=== PATIENT | female | born 1985 | race Caucasian/White ===

== ENCOUNTER 2022-01-24 10:00 | Outpatient (RCR) | payer OTHER, SELFPAY | END 2022-05-05 15:26 | disposition home or self-care (01) | PROVIDERS: PCP Family Medicine; Visit Provider Family Medicine | DX: N39.3 Stress incontinence (female) (male) (principal); Z51.89 Encounter for other specified aftercare | CPT/HCPCS: 97110; 97112; 97140; 97161 ==

== ENCOUNTER 2022-12-23 00:28 | Emergency (ER) | payer OTHER, SELFPAY ==
[2022-12-23 00:34] VITALS: BP 125/84; PULSE 73; RESP 18; TEMP 36.8; O2SAT 99; BMI 24.0
[2022-12-23 01:00] VITALS: O2SAT 98
--- NOTE | 2022-12-23 01:20 | ED_ITS ---
HPI - General Adult General Chief complaint: Sore Throat Stated complaint: sore throat Time Seen by Provider: 12/23/22 01:03 Source: patient Mode of arrival: ambulatory Limitations: no limitations History of Present Illness HPI narrative: 37-year-old female presents the emergency department with 1+ week history of URI and 4 day history of sore throat. [facility] care provider 3 days ago, negative strep test obtained. Was given oral antibiotics at the pharmacy to have if her symptoms worsen. She spiked a fever about 36 hours later and picked up her antibiotics yesterday morning. She has been taking amoxicillin 1000 mg once daily yesterday and earlier today. These are not helping and she feels like the sore throat is worsening. She says that it feels like it is difficult to swallow even though she can swallow. There was noted breathing difficulty. She tried taking ibuprofen prior to coming to the emergency department with no significant improvement in symptoms. No ear pain, no nasal congestion. No abdominal pain, nausea or vomiting. Fever to 102 yesterday. Has not tried any other interventions to help with symptoms. Past medical history she reports is benign, no major long-term health problems. No long-term prescription medications. Did recently travel outside the area. ROS notable for the HEENT symptoms as above only, otherwise denies times 12 systems. Related Data Home Medications Medication Instructions Recorded Confirmed amoxicillin 500 mg tablet 500 mg PO BID 12/23/22 12/23/22 Previous Rx's Medication Instructions Recorded prednisone 20 mg tablet 20 mg PO DAILY #5 tabs 12/23/22 Allergies Allergy/AdvReac Type Severity Reaction Status Date / Time No Known Drug Allergies Allergy Verified 12/23/22 00:36 Exam Const: Vital Signs, click to edit/add: Vital Signs - 24 hr 12/23/22 00:34 12/23/22 01:28 Temperature 98.2 F 98.5 F Pulse Rate [Right Pulse Oximeter] 73 Respiratory Rate 18 Blood Pressure [Ri ght Upper Arm] 125/84 Pulse Oximetry 99 Oxygen Delivery Me thod Room Air Documenting provider has reviewed patient's vital signs: yes Common normals: no apparent distress General appearance: cooperative and well kempt HENMT: Common normals: normocephalic Head and scalp: normocephalic Face and sinus: normal facial exam Other: Tonsils 3+ with flores pseudomembranous type of exudate classic for mononucleosis. Membranes are moist. Normal dentition and tongue. No swelling to the airway. TMs normal bilaterally. Eye: Common normals: conjunctivae normal General eye: normal appearance of both eyes Conjunctiva: conjunctiva(e) normal Neck & C-Spine: Other: Moderate anterior cervical and submandibular lymphadenopathy, left greater than right, tender. Normal range of motion of neck. Resp: Common normals: normal respiratory effort, no use of accessory muscles and clear to auscultation bilaterally Effort & inspection: able to speak in complete sentences Auscultation: clear to auscultation bilaterally Cardio: Common normals: regular rate, regular rhythm, S1 normal heart sound, S2 normal heart sound and no murmurs Rate: regular rate Rhythm: regular rhythm Heart sounds: S1 normal and S2 normal GI: Common normals: Normal to inspection, nondistended, normoactive bowel sounds present, no hepatosplenomegaly and no masses Palpation: no hepatosplenomegaly Extremity: Common normals: normal capillary refill and no pedal edema Neuro: Speech: speech normal Motor exam: strength 5/5 throughout and no movement abnormalities noted Psych: Appearance: well kempt Attitude: engaged Skin: Common normals: no rashes or lesions noted General skin exam: no rashes or lesions noted Course Course Hospital Course: Worsening sore throat, not improving on antibiotics. Bilateral symmetric exudates, classic appearance for mononucleosis or other similar viral process. Based on the fact that she had URI symptoms the week preceding her sore throat, I do think she is in a window which is acceptable for mono testing. Recommend prednisone 20 mg p.o. x1, Tylenol 1000 mg 2 p.o. x1 and 1 L of IV fluid while we await mono test results. Would likely benefit from 5 days of steroids. I do recommend that she discontinue the antibiotics at this time as it is not consistent with strep or similar bacterial process. Await findings. Reevaluation(s) Time of Reevaluation #1: 02:06 Reevaluation #1: Informed patient of negative mono results but discussed potential false negative rate of the test plus also the fact that she has not been ill for the full duration needed for a better quality result. The IV fluids did help somewhat as did the Tylenol but overall still has sore throat which would be expected. Alarm symptoms reviewed, typical course of illness discussed. She would need to follow up with her primary care doctor if she is not improving as expected. [place] paperwork would need to be filled out by primary care provider. Additional send out testing can be performed by primary care provider if needed but is often not helpful in does not change the clinical course. Discussed Tylenol, ibuprofen and typical gargles, comfort measures at home. Reviewed plan for daily steroids for 5 days. She verbalizes understanding and agreement. Vital Signs Vital signs: Initial Vital Signs Temperature 98.2 F 12/23/22 00:34 Temperature Source Temporal Artery Scan 12/23/22 00:34 Pulse Rate 73 12/23/22 00:34 Respiratory Rate 18 12/23/22 00:34 Blood Pressure 125/84 12/23/22 00:34 Blood Pressure Mean 97 12/23/22 00:34 Blood Pressure Position Sitting 12/23/22 00:34 Pulse Oximetry 99 12/23/22 00:34 Oxygen Delivery Method Room Air 12/23/22 00:34 Vital Signs Temperature 98.2 F 12/23/22 00:34 Pulse Rate 73 12/23/22 00:34 Respiratory Rate 18 12/23/22 00:34 Blood Pressure 125/84 12/23/22 00:34 Pulse Oximetry 99 12/23/22 00:34 Oxygen Delivery Method Room Air 12/23/22 00:34 Temperature 98.5 F 12/23/22 01:28 Pulse Rate 73 12/23/22 00:34 Respiratory Rate 18 12/23/22 00:34 Blood Pressure 125/84 12/23/22 00:34 Pulse Oximetry 99 12/23/22 00:34 Oxygen Delivery Method Room Air 12/23/22 00:34 Medical Decision Making Lab Data Lab results reviewed: Yes I reviewed the patient's lab results Lab results narrative: Negative but potential false negative, see hospital course Labs: Lab Results 12/23/22 Range/Units 01:25 Monoscreen Negative (Negative) Discharge Plan Discharge Clinical Impression: Infectious mononucleosis Patient Disposition: Home, Self-Care Condition: Stable Instructions: Mononucleosis (ED) Additional Instructions: As we discussed, the rapid, in-house testing for mono has about a 20% false negative rate, the rate can be even higher if you have been ill less than 7 days. That test also only test for Ebstein Luther virus but there are many similar virus is which causes this type of illness such is adenovirus and cytomegalovirus as well which would not be detected by the blood work that we performed today. On exam, your throat infection is incredibly classic for mono or a similar virus. With her negative strep test, I do not recommend antibiotics for you at this time, it can potentially increase your risk of other complications. Time is the only cure for this virus. It will run a course over about 10 weeks but for most, expect 2 weeks of significantly sore throat. A course of prednisone which is a steroid can decrease the severity of the sore throat and potential complications such as dehydration, abscess formation, etc.. Your given your 1st dose of steroid here in the emergency department. You will car pick up driver the remaining supply at the pharmacy and take this once daily for the next 4 days. I cannot stress enough how important it is to stay hydrated. I would not recommend going more than 4 hours, even overnight without drinking at least 6 oz of liquid. For pain control, I recommend ibuprofen 600 mg every 6 hours and Tylenol 1000 mg every 6 hours. This means that you are taking something about every 3-4 hours and alternating between the 2 for pain control. There can potentially be complications with the liver, spleen or abscess formation but these are quite rare and low risk based on your age and other medical conditions. If you have severe symptoms, I would recommend reassessment. If her symptoms are not improving in a couple of weeks, I would recommend that you follow-up with your primary care provider. There is additional send out testing that can be done to confirm which virus but I would not recommend it until at least today 10 of illness because of the false negative rate. This would need to be ordered by your primary care provider if necessary. If you need prolonged time off of work, you will need to have [facility] paperwork filled out by your primary care provider. Activity Level: No Restrictions Discharge Diet: Regular Prescriptions: New prednisone 20 mg tablet 20 mg PO DAILY Qty: 5 0RF No Action amoxicillin 500 mg tablet 500 mg PO BID Follow Up/Referrals: Jennifer Dillon MD [Primary Care Provider] - Stand Alone Forms: [employer] Info Instructions
[2022-12-23] MEDS: 0.9 % SODIUM CHLORIDE 1000 ml 1,000 ML IV (01:25)
[2022-12-23 01:28] VITALS: TEMP 36.9
[2022-12-23] MEDS: ACETAMINOPHEN 500 MG TABLET 1000 MG PO (01:28)
[2022-12-23] MEDS: predniSONE 10 MG TABLET 20 MG PO (01:28)
[2022-12-23 01:37] LABS: Mono Screen* Negative (Negative)
[2022-12-23 02:13] VITALS: BP 128/79; PULSE 75; RESP 18; TEMP 36.8; O2SAT 99
[2022-12-23 02:16] VITALS: BP 128/79; PULSE 75; RESP 18; TEMP 36.8
[2022-12-23 02:30] VITALS: TEMP 36.7
== END 2022-12-23 02:16 | disposition home or self-care (01) ==
PROVIDERS: Emergency Provider Family Medicine; PCP Family Medicine
DX: B27.90 Infectious mononucleosis, unspecified without complication (principal)
CPT/HCPCS: 36415; 86308; 94761; 96360; 99283; 99284; A9270; J7030; J7512